=== PATIENT | male | born 1940 | race Caucasian/White ===

== ENCOUNTER 2016-11-07 20:40 | Inpatient (IN) | payer BC, MEDICARE ==
--- NOTE | 2016-11-07 21:13 | ERPHSYRPT ---
- History of Present Illness Source: patient, family (daughter) Exam Limitations: no limitations Patient Subjective Stated Complaint: PT STATES HE BEGAN TO FEEL BAD AFTER WORKING ALL DAY FRIDAY, STATES HE HAD PAIN TO THE RIGHT FLANK THAT MOVES AROUND TO HIS ABDOMEN. PT ALSO REPORTS SHORTNESS OF BREATH AND PAIN UPON INSPIRATION. PT STATES HE HAS A COUGH, WITH A VERY SMALL AMOUNT OF WHITE SPUTUM. PT ALSO REPORTS A DIMINISHED APPETITE. Triage Nursing Assessment: PT IS AOX3, AMBULATORY TO COT WITH SLOW GAIT, PT IS SHORT OF BREATH AT REST WITH A DRY, COUGH. WHEEZING IS HEARD TO BASES OF LUNGS. PT SKIN IS FLUSHED AND WARM TO THE TOUCH. ABD IS SOFT AND NON TENDER WITH PALPATION. BOWEL SOUNDS ARE PRESENT AND NORMOACTIVEX4. NO EDEMA APPRECIATED. Physician History: Patient here with right flank pain some cough with occasional sputum feeling weak and tired today possible fever and chills. History of kidney stone in the past. Patient normally is active and works daily. History of CABG in the past. No nausea vomiting abdominal pain. No urinary complaints. Some mild shortness of breath with exertion. Timing/Duration: today, yesterday, worse Fever Severity: moderate Fever Therapy BONDING AGENT: none Associated Symptoms: abdominal pain (right flank pain), cough, weakness Allergies/Adverse Reactions: No Known Drug Allergies Allergy (Verified 11/07/16 21:10) Home Medications: Aspirin 81 gm Chew [Baby Aspirin 81 mg Chew] 81 mg PO DAILY 08/04/14 [ History] Hydrocodone Bit/Acetaminophen [[place] 7.5-325 Tablet] 1 each PO Q4-6HPRN PRN [History] Lovastatin 20 mg PO DAILY 08/04/14 [History] Furosemide 40 mg [Lasix 40 MG] 40 mg PO DAILY 11/07/16 [History] Lansoprazole [Prevacid] 30 mg PO DAILY 11/07/16 [History] Losartan Potassium 25 mg PO DAILY 11/07/16 [History] Metoprolol Tartrate 25 mg [Lopressor 25MG Tab] 25 mg PO DAILY 11/07/16 [ History] Potassium Chloride 10 Meq Tab* [Klor Con 10 MEQ] 10 meq PO DAILY 11/07/16 [ History] Hx Tetanus, Diphtheria Vaccination/Date Given: No Hx Influenza Vaccination/Date Given: No Hx Pneumococcal Vaccination/Date Given: No Immunizations Up to Date: Yes - Review of Systems Constitutional: Chills, Fatigue, Lethargy, Malaise Eyes: No Symptoms Respiratory: Cough, Other (pleuritic chest pain) Cardiac: No Symptoms Abdominal/Gastrointestinal: Other (Right flank pain) Genitourinary Symptoms: Flank Pain (As noted above) Musculoskeletal: No Symptoms Skin: No Symptoms Neurological: No Symptoms Psychological: No Symptoms Endocrine: No Symptoms Hematologic/Lymphatic: No Symptoms Immunological/Allergic: No Symptoms All Other Systems: Reviewed and Negative - Past Medical History Pertinent Past Medical History: Yes Neurological History: No Pertinent History Cardiac History: Myocardial Infarction (VT) Respiratory History: No Pertinent History Endocrine Medical History: No Pertinent History Musculoskeletal History: Osteoarthritis History: Other (Kidney stone) Other Medical History: CABG 1992; [place] 08/03 - Past Surgical History Past Surgical History: Yes Cardiac: CABG Gastrointestinal: Appendectomy Musculoskeletal: Other Male Surgical History: Other Other Surgical History: BACK SURGERY 2014 - Social History Smoking Status: Never smoker Exposure to second hand smoke: No Drug Use: none Patient Lives Alone: No - Nursing Vital Signs Nursing Vital Signs: Initial Vital Signs Temperature 102.4 F 11/07/16 20:56 Pulse Rate 74 11/07/16 20:56 Respiratory Rate 30 H 11/07/16 20:56 Blood Pressure 108/57 11/07/16 20:56 O2 Sat by Pulse Oximetry 92 L 11/07/16 20:56 Pain Scale Pain Intensity 6 - Physical Exam General Appearance: mild distress, obese Eye Exam: PERRL/EOMI ENT Exam: normal ENT inspection Neck Exam: normal inspection Respiratory Exam: decreased air movement (with tachypnea), prolonged expirations , crackles/rales Cardiovascular/Chest Exam: normal heart sounds, regular rate/rhythm, normal peripheral pulses, other (post CABG sternotomy scar) Gastrointestinal/Abdominal Exam: soft, non tender, normal bowel sounds, tenderness (right flank tenderness) Male Genitalia: No hernia Rectal Exam: deferred Extremity Exam: non-tender, normal range of motion Neurologic Exam: alert, oriented x 3, cooperative, normal mood/affect Skin Exam: normal color, warm, dry, No rash, No petechiae Lymphatic: No adenopathy SpO2 Interpretation: borderline oxygenation, O2 applied SpO2: 92 Oxygen Delivery: Room Air - Radiology Exams Chest X-ray Interpretation: Infiltrates, Pneumonia - CT Exams Abdomen/Pelvis CT Interpretation: Tele-radiologist Report (no evidence of kidney stone however abnormal area in colon that needs further investigation) Ordered Tests: Active Orders 24 hr Category Date Time Status Up With Assistance ROUTINE Activity 11/08/16 02:47 Active Admission/Status Order ROUTINE Care 11/08/16 02:47 Active Upholstery Covers Inspector STAT Care 11/07/16 21:13 Completed Code Status Order ROUTINE Care 11/08/16 02:47 Active IV Care Q6H Care 11/08/16 02:47 Active IV Insertion STAT Care 11/07/16 21:17 Completed Oxygen-ED Only NASAL CANNULA 2 lpm Care 11/07/16 21:19 Inactive Pulse Oximetry (ED) STAT Care 11/07/16 21:13 Completed Saline Lock STAT Care 11/07/16 21:13 Completed Mayito Farhad, Apply ROUTINE Care 11/08/16 02:47 Active Telemetry Q4H Care 11/08/16 02:47 Active Weight,Daily 0600 Care 11/08/16 02:47 Active Cardiac Diet Diet 11/08/16 Breakfast Active ABDOMEN AND PELVIS W/0 CONTRAS [CT] Stat Exams 11/07/16 21:45 Taken CHEST 1 VIEW (PORTABLE) Stat Exams 11/07/16 21:13 Taken ARTERIAL BLOOD GASES AM.LAB Lab 11/08/16 04:00 Ordered ARTERIAL BLOOD GASES Stat Lab 11/07/16 21:21 Completed BLOOD CULTURE Stat Lab 11/07/16 21:50 Received CBC AM.LAB Lab 11/08/16 04:00 Ordered CBC W DIFF Stat Lab 11/07/16 21:40 Completed CMP AM.LAB Lab 11/08/16 04:00 Ordered CMP Stat Lab 11/07/16 21:40 Completed CULTURE,SPUTUM Stat Lab 11/07/16 21:18 Uncollected CULTURE,URINE Stat Lab 11/07/16 22:18 Received Lactic Acid Stat Lab 11/07/16 21:13 Completed Manual Differential NC Stat Lab 11/07/16 21:40 Completed PROTIME WITH INR Stat Lab 11/07/16 21:40 Completed PTT Stat Lab 11/07/16 21:40 Completed UA W/ MICROSCOPIC Stat Lab 11/07/16 22:18 Completed Oxygen NASAL CANNULA 2 lpm RT 11/08/16 02:47 Active Respiratory Therapy Consult ROUTINE RT 11/08/16 02:47 Completed Transfer Order Routine Transfer 11/08/16 00:27 Completed Medication Summary Generic Name Dose Route Start Last Admin Trade Name Freq PRN Reason Stop Dose Admin Acetaminophen 500 mg 11/08/16 02:47 Tylenol Extra Strength 500 Mg PO 12/08/16 02:46 Q6H PRN PRN FEVER Albuterol/Ipratropium 3 ml 11/08/16 03:00 Duoneb 0.5-3 Mg/3 Ml Neb IH 12/08/16 02:59 Q4HRT ANGELICA Fentanyl Citrate 50 mcg 11/08/16 02:47 Sublimaze 100 Mcg/2 Ml IV 11/13/16 02:46 Q2H PRN PRN PAIN Piperacillin Sod/Tazobactam 100 mls @ 100 mls/hr 11/08/16 06:00 Sod 4.5 gm/ Dextrose IV 12/08/16 05:59 Q8HT ANGELICA Sodium Chloride 1,000 mls @ 100 mls/hr 11/08/16 02:47 11/08/16 03:25 Sodium Chloride 0.9% 1000 Ml IV 12/08/16 02:46 100 mls/hr .Q10H ANGELICA Administration Discontinued Medications Generic Name Dose Route Start Last Admin Trade Name Freq PRN Reason Stop Dose Admin Acetaminophen 975 mg 11/07/16 21:19 11/07/16 21:36 Tylenol 325 Mg PO 11/07/16 21:20 975 mg STAT STA Administration Acetaminophen Confirm 11/07/16 21:30 Tylenol 325 Mg Administered 11/07/16 21:31 Dose 975 mg .ROUTE .STK-MED ONE Sodium Chloride 1,000 mls @ 999 mls/hr 11/07/16 21:17 11/07/16 21:37 Sodium Chloride 0.9% 1000 Ml IV 11/07/16 22:17 999 mls/hr .Q1H1M STA Administration Sodium Chloride Confirm 11/07/16 21:30 Sodium Chloride 0.9% 1000 Ml Administered 11/07/16 21:31 Dose 1,000 mls @ ud .ROUTE .STK-MED ONE Piperacillin Sod/Tazobactam 100 mls @ 100 mls/hr 11/07/16 22:06 11/07/16 22: 28 Sod 4.5 gm/ Dextrose IV 11/07/16 23:05 100 mls/hr STAT ONE Administration Dextrose Confirm 11/07/16 22:16 D5w 100ml Mini Bag 100 Ml Administered 11/07/16 22:17 Dose 100 mls @ ud IV .STK-MED ONE Piperacillin Sod/Tazobactam Sod Confirm 11/07/16 22:15 Zosyn Inj Administered 11/07/16 22:16 Dose 4.5 gm IV .STK-MED ONE Lab/Rad Data: Laboratory Result Diagrams 11/07/16 21:40 11/07/16 21:40 Laboratory Results 11/07/16 11/07/16 11/07/16 Range/Units 22:18 21:58 21:40 WBC (4.0-10.5) K/mm3 RBC (4.1-5.6) M/mm3 Hgb (12.5-18.0) gm/dl Hct (42-50) % MCV (78-100) fl MCH (26-32) pg MCHC (32-36) g/dl RDW (11.5-14.0) % Plt Count (150-450) K/mm3 MPV (6-9.5) fl Segmented Neutrophils (36.-66.) % Band Neutrophils (0.0-2.0) % Lymphocytes (Manual) (24-44) % Monocytes (Manual) (0.0-12.0) % Differential Comment Platelet Estimate (NORMAL) INR 1.17 (0.8-3.0) APTT 30.2 (24.1-36.1) SECONDS Puncture Site pCO2 (35-45) mmHg pO2 (75-100) mmHg Base Excess (-2.0-2.0) O2 Saturation (94-100) g/dF ABG pH (7.35-7.45) ABG HCO3 (22-28) ABG O2 Sat (Measured) (95-100) % Bernard Test A-a Gradient a/A Ratio Hemoglobin Carboxyhemoglobin (0.0-6.9) % THgb Methemoglobin (1.4-1.5) % Potassium (3.5-5.1) Temperature C POC O2 Flow Rate % Sodium (136-145) mEq/L Chloride (98-107) mEq/L Carbon Dioxide (21-32) mEq/L Anion Gap (5-15) MEQ/L BUN (9-20) mg/dL Creatinine (0.55-1.30) mg/dl Estimated GFR ML/MIN Glucose (70-110) MG/DL Lactic Acid (0.4-2.0) Calcium (8.5-10.1) mg/dL Total Bilirubin (0.2-1.0) mg/dL AST (15-37) U/L ALT (12-78) U/L Alkaline Phosphatase (46-116) U/L Serum Total Protein (6.4-8.2) gm/dL Albumin (3.4-5.0) g/dL Ur Collection Type CCMS Urine Color YELLOW (YELLOW) Urine Appearance CLEAR (CLEAR) Urine pH 5.0 (5-6) Ur Specific [place] 1.020 (1.005-1.025) Urine Protein NEGATIVE (Negative) Urine Ketones NEGATIVE (NEGATIVE) Urine Blood TRACE NON-HEM (0-5) Gurjit/ul Urine Nitrite NEGATIVE (NEGATIVE) Urine Bilirubin NEGATIVE (NEGATIVE) Urine Urobilinogen NORMAL (0-1) mg/dL Ur Leukocyte Esterase NEGATIVE (NEGATIVE) Urine Microscopic RBC 0-2 (0-2) /HPF Urine Microscopic WBC 0-2 (0-5) /HPF Ur Epithelial Cells RARE (FEW) /HPF Urine Bacteria RARE (NEGATIVE) /HPF Urine Mucus SLIGHT (NEGATIVE) /HPF Urine Glucose NEGATIVE (NEGATIVE) mg/dL Influenza Type A Ag NEGATIVE (NEGATIVE) Influenza Type B Ag NEGATIVE (NEGATIVE) RSV (PCR) NEGATIVE (Negative) Specimen Received 11-07-16 [id number] 11/07/16 11/07/16 11/07/16 Range/Units 21:40 21:40 21:21 WBC 13.6 H (4.0-10.5) K/mm3 RBC 4.44 (4.1-5.6) M/mm3 Hgb 12.7 (12.5-18.0) gm/dl Hct 39.4 L (42-50) % MCV 88.7 (78-100) fl MCH 28.6 (26-32) pg MCHC 32.2 (32-36) g/dl RDW 13.7 (11.5-14.0) % Plt Count 194 (150-450) K/mm3 MPV 10.7 H (6-9.5) fl Segmented Neutrophils 80 H (36.-66.) % Band Neutrophils 3 H (0.0-2.0) % Lymphocytes (Manual) 13 L (24-44) % Monocytes (Manual) 4 (0.0-12.0) % Differential Comment NORMAL Platelet Estimate NORMAL (NORMAL) INR (0.8-3.0) APTT (24.1-36.1) SECONDS Puncture Site RIGHT RADIAL pCO2 31 L (35-45) mmHg pO2 79 (75-100) mmHg Base Excess 0.9 (-2.0-2.0) O2 Saturation 95.1 (94-100) g/dF ABG pH 7.49 H (7.35-7.45) ABG HCO3 23.6 (22-28) ABG O2 Sat (Measured) 98.9 (95-100) % Bernard Test YES A-a Gradient 110 a/A Ratio 0.42 Hemoglobin 12.7 Carboxyhemoglobin 2.7 (0.0-6.9) % THgb Methemoglobin 1.0 L (1.4-1.5) % Potassium 3.7 3.7 (3.5-5.1) Temperature 37.0 C POC O2 Flow Rate 32 % Sodium 140 (136-145) mEq/L Chloride 103 (98-107) mEq/L Carbon Dioxide 25.9 (21-32) mEq/L Anion Gap 15.1 H (5-15) MEQ/L BUN 17 (9-20) mg/dL Creatinine 1.14 (0.55-1.30) mg/dl Estimated GFR > 60 ML/MIN Glucose 120 H (70-110) MG/DL Lactic Acid (0.4-2.0) Calcium 9.2 (8.5-10.1) mg/dL Total Bilirubin 0.50 (0.2-1.0) mg/dL AST 21 (15-37) U/L ALT 15 (12-78) U/L Alkaline Phosphatase 64 (46-116) U/L Serum Total Protein 7.9 (6.4-8.2) gm/dL Albumin 3.5 (3.4-5.0) g/dL Ur Collection Type Urine Color (YELLOW) Urine Appearance (CLEAR) Urine pH (5-6) Ur Specific [place] (1.005-1.025) Urine Protein (Negative) Urine Ketones (NEGATIVE) Urine Blood (0-5) Gurjit/ul Urine Nitrite (NEGATIVE) Urine Bilirubin (NEGATIVE) Urine Urobilinogen (0-1) mg/dL Ur Leukocyte Esterase (NEGATIVE) Urine Microscopic RBC (0-2) /HPF Urine Microscopic WBC (0-5) /HPF Ur Epithelial Cells (FEW) /HPF Urine Bacteria (NEGATIVE) /HPF Urine Mucus (NEGATIVE) /HPF Urine Glucose (NEGATIVE) mg/dL Influenza Type A Ag (NEGATIVE) Influenza Type B Ag (NEGATIVE) RSV (PCR) (Negative) Specimen Received 11/07/16 Range/Units 21:13 WBC (4.0-10.5) K/mm3 RBC (4.1-5.6) M/mm3 Hgb (12.5-18.0) gm/dl Hct (42-50) % MCV (78-100) fl MCH (26-32) pg MCHC (32-36) g/dl RDW (11.5-14.0) % Plt Count (150-450) K/mm3 MPV (6-9.5) fl Segmented Neutrophils (36.-66.) % Band Neutrophils (0.0-2.0) % Lymphocytes (Manual) (24-44) % Monocytes (Manual) (0.0-12.0) % Differential Comment Platelet Estimate (NORMAL) INR (0.8-3.0) APTT (24.1-36.1) SECONDS Puncture Site pCO2 (35-45) mmHg pO2 (75-100) mmHg Base Excess (-2.0-2.0) O2 Saturation (94-100) g/dF ABG pH (7.35-7.45) ABG HCO3 (22-28) ABG O2 Sat (Measured) (95-100) % Bernard Test A-a Gradient a/A Ratio Hemoglobin Carboxyhemoglobin (0.0-6.9) % THgb Methemoglobin (1.4-1.5) % Potassium (3.5-5.1) Temperature C POC O2 Flow Rate % Sodium (136-145) mEq/L Chloride (98-107) mEq/L Carbon Dioxide (21-32) mEq/L Anion Gap (5-15) MEQ/L BUN (9-20) mg/dL Creatinine (0.55-1.30) mg/dl Estimated GFR ML/MIN Glucose (70-110) MG/DL Lactic Acid 0.7 (0.4-2.0) Calcium (8.5-10.1) mg/dL Total Bilirubin (0.2-1.0) mg/dL AST (15-37) U/L ALT (12-78) U/L Alkaline Phosphatase (46-116) U/L Serum Total Protein (6.4-8.2) gm/dL Albumin (3.4-5.0) g/dL Ur Collection Type Urine Color (YELLOW) Urine Appearance (CLEAR) Urine pH (5-6) Ur Specific [place] (1.005-1.025) Urine Protein (Negative) Urine Ketones (NEGATIVE) Urine Blood (0-5) Gurjit/ul Urine Nitrite (NEGATIVE) Urine Bilirubin (NEGATIVE) Urine Urobilinogen (0-1) mg/dL Ur Leukocyte Esterase (NEGATIVE) Urine Microscopic RBC (0-2) /HPF Urine Microscopic WBC (0-5) /HPF Ur Epithelial Cells (FEW) /HPF Urine Bacteria (NEGATIVE) /HPF Urine Mucus (NEGATIVE) /HPF Urine Glucose (NEGATIVE) mg/dL Influenza Type A Ag (NEGATIVE) Influenza Type B Ag (NEGATIVE) RSV (PCR) (Negative) Specimen Received - Progress Progress: improved, re-examined Progress Note: 11/08/16 00:25Patient with obvious large right pneumonitis negative CT scan except for abnormal area and colon that needs further investigation. Case discussed with Dr. Styles patient for full admission with aggressive treatment of pneumonia. Discussed with : Jensen Will see patient in: hospital (full admit) - Departure Time of Disposition: 00:26 Departure Disposition: In-patient Admission Clinical Impression: Abnormal abdominal CT scan Right lower lobe pneumonia Qualifiers: Pneumonia type: due to unspecified organism Qualified Code(s): J18.1 - Lobar pneumonia, unspecified organism Condition: Serious Critical Care Time: No
[2016-11-07] MEDS ORDERED: Sodium Chloride 0.9% 1000 ML 1,000 ML IV STA (21:17)
[2016-11-07] MEDS ORDERED: TYLENOL 325 MG PO STA (21:19)
[2016-11-07] MEDS ORDERED: Sodium Chloride 0.9% 1000 ML 1,000 ML ONE (21:30)
[2016-11-07] MEDS ORDERED: TYLENOL 325 MG ONE (21:30)
[2016-11-07 21:59] LABS: A-aADO2 110; ARTERIAL BLD GAS O2 SATURATION 98.9 % (95-100); ARTERIAL BLOOD GAS BASE EXCESS 0.9 (-2.0-2.0); ARTERIAL BLOOD GAS FIO2 32 %; ARTERIAL BLOOD GAS PO2 79 mmHg (75-100); ARTERIAL BLOOD GAS pH 7.49 (7.35-7.45)
[2016-11-07 22:01] LABS: Mean Cell Volume 88.7 fl (78-100); Mean Corpuscular Hemoglobin 28.6 pg (26-32); Mean Platelet Volume 10.7 fl (6-9.5); Platelet Count 194 K/mm3 (150-450); Red Blood Count 4.44 M/mm3 (4.1-5.6); Red Cell Distribution Width 13.7 % (11.5-14.0); White Blood Count 13.6 K/mm3 (4.0-10.5)
[2016-11-07 22:05] LABS: ALLEN TEST OK? YES
[2016-11-07] MEDS ORDERED: Zosyn INJ 4.5 GM in D5w 100ML Mini Bag 100 ML 100 ML IV ONE (22:06)
[2016-11-07] MEDS ORDERED: Zosyn INJ IV ONE (22:15)
[2016-11-07] MEDS ORDERED: D5w 100ML Mini Bag 100 ML 100 ML IV ONE (22:16)
[2016-11-07 22:17] LABS: INR 1.17 (0.8-3.0); PROTIME 13.2 SECONDS (8.83-12.87)
[2016-11-07 22:20] LABS: PTT 30.2 SECONDS (24.1-36.1)
[2016-11-07 22:25] LABS: ALBUMIN 3.5 g/dL (3.4-5.0); ALKALINE PHOSPHATASE 64 U/L (46-116); ANION GAP 15.1 MEQ/L (5-15); BLOOD UREA NITROGEN 17 mg/dL (9-20); CHLORIDE 103 mEq/L (98-107); Carbon Dioxide 25.9 mEq/L (21-32); Glucose 120 MG/DL (70-110); Potassium 3.7 mEq/L (3.5-5.1); SGOT/AST 21 U/L (15-37); SGPT/ALT 15 U/L (12-78); SODIUM 140 mEq/L (136-145); Total Protein 7.9 gm/dL (6.4-8.2)
[2016-11-07 22:43] LABS: Bacteria RARE /HPF (NEGATIVE); Bilirubin NEGATIVE (NEGATIVE); Blood TRACE NON-HEM Ery/ul (0-5); COMPLETE URINE MICROSCOPIC? YES; Collection Type CCMS; Epithelial Cells RARE /HPF (FEW); Glucose NEGATIVE (NEGATIVE); Leukocyte Esterase NEGATIVE (NEGATIVE); Mucus SLIGHT /HPF (NEGATIVE); WBC 0-2 /HPF (0-5)
[2016-11-07 22:48] LABS: BAND 3 % (0.0-2.0); Platelet Estimate NORMAL (NORMAL); Total Cells Counted 100
[2016-11-08] MEDS ORDERED: TYLENOL EXTRA STRENGTH 500 MG PO PRN (02:47)
[2016-11-08] MEDS ORDERED: DUONEB 0.5-3 MG/3 ml Neb IH SCH (03:00)
[2016-11-08] MEDS: Sodium Chloride 0.9% 1000 ML 1,000 ML IV SCH ×2 (03:25→14:48)
[2016-11-08] MEDS ORDERED: DUONEB 0.5-3 MG/3 ml Neb IH PRN (04:17)
[2016-11-08 06:02] LABS: Mean Cell Volume 89.8 fl (78-100); Mean Corpuscular Hemoglobin 28.1 pg (26-32); Mean Platelet Volume 10.1 fl (6-9.5); Platelet Count 161 K/mm3 (150-450); Red Blood Count 4.02 M/mm3 (4.1-5.6); Red Cell Distribution Width 13.8 % (11.5-14.0); White Blood Count 11.1 K/mm3 (4.0-10.5)
[2016-11-08 06:22] LABS: ALBUMIN 2.8 g/dL (3.4-5.0); ALKALINE PHOSPHATASE 53 U/L (46-116); ANION GAP 12.6 MEQ/L (5-15); BLOOD UREA NITROGEN 15 mg/dL (9-20); CHLORIDE 106 mEq/L (98-107); Carbon Dioxide 24.5 mEq/L (21-32); Glucose 150 MG/DL (70-110); Potassium 3.3 mEq/L (3.5-5.1); SGOT/AST 18 U/L (15-37); SGPT/ALT 20 U/L (12-78); SODIUM 140 mEq/L (136-145); Total Protein 6.9 gm/dL (6.4-8.2)
[2016-11-08] MEDS: Zosyn INJ 4.5 GM in D5w 100ML Mini Bag 100 ML 100 ML IV SCH ×3 (07:08→22:05)
--- NOTE | 2016-11-08 09:24 | XRAY ---
Indication: Possible sepsis. Comparison: August 04, 2014. Portable chest significantly underinflated today accentuating the cardiopulmonary structures with new bibasilar infiltrates/atelectasis and possible effusions. Stable CABG surgery and left upper lobe calcified granuloma. Bony thorax intact.
--- NOTE | 2016-11-08 09:27 | XRAY ---
Indication: Left flank pain. Multiple contiguous axial images obtained through the abdomen and pelvis without contrast as ordered. Comparison: August 04, 2014. Lung bases again demonstrates moderate bilateral dependent atelectasis slightly worsened in the interim. Tiny right effusion. Heart is not enlarged. Noncontrasted stomach and bowel loops appear nonobstructed. Again scattered descending and sigmoid diverticulosis without diverticulitis. Previous reported appendectomy. No free fluid/air. Again a few calcified hepatic/splenic granulomas. There is now nonobstructing punctate lower renal calculus in each kidney. Remaining liver, gallbladder, pancreas, spleen, adrenal glands, kidneys, ureters, and bladder appear unremarkable for noncontrast exam. Again mild aortoiliac calcifications without AAA. Osseous structures intact again with moderate degenerative changes throughout the spine. There has been interval L3 laminectomy with now 5-6 mm anterolisthesis. Stable small bilateral fatty inguinal hernias. Impression: 1. New nonobstructing bilateral renal micro-calculus. 2. Stable scattered colonic diverticulosis and small bilateral fatty inguinal hernias. 3. No acute intra-abdominal/pelvic abnormalities on this noncontrast exam. 4. Interval L3 laminectomy with now mild grade 1 spondylolisthesis. Comment: Preliminary interpretation was made by [facility]. Bilateral renal micro-calculi, fatty inguinal hernias, and lumbar surgical changes including spondylolisthesis not reported and not felt to be critical findings. CT DI 23.68
[2016-11-08] MEDS: NORCO 7.5/325 MG TAB PO PRN ×2 (09:37→22:04)
[2016-11-08] MEDS: Cozaar 50 MG PO SCH (09:38)
[2016-11-08] MEDS: ECOTRIN 81 MG PO SCH (09:38)
[2016-11-08] MEDS: Protonix 40MG Tablet PO SCH (09:38)
[2016-11-08] MEDS: ENOXAPARIN SODIUM SQ SCH (09:38)
[2016-11-08] MEDS: Lasix 40 MG PO SCH (09:39)
[2016-11-08] MEDS: Lopressor 25MG Tab PO SCH (09:39)
[2016-11-08] MEDS: Klor Con 10 MEQ PO SCH (09:39)
[2016-11-08] MEDS: Zocor 10MG PO SCH (09:39)
[2016-11-08] MEDS ORDERED: NON-FORMULARY ITEM (Losartan Potassium [Losartan Potassium] 25 MG) PO SCH (10:00)
[2016-11-08] MEDS ORDERED: NON-FORMULARY ITEM (Lansoprazole [Prevacid] 30 MG) PO SCH (10:00)
[2016-11-08] MEDS ORDERED: BABY ASPIRIN 81 MG CHEW PO SCH (10:00)
[2016-11-08] MEDS ORDERED: NON-FORMULARY ITEM (Lovastatin [Lovastatin] 20 MG) PO SCH (10:00)
[2016-11-08] MEDS: SUBLIMAZE 100 MCG/2 ML IV PRN ×3 (11:06→17:03)
[2016-11-09] MEDS: Sodium Chloride 0.9% 1000 ML 1,000 ML IV SCH (01:35)
[2016-11-09] MEDS: Zosyn INJ 4.5 GM in D5w 100ML Mini Bag 100 ML 100 ML IV SCH ×3 (05:47→21:46)
[2016-11-09 06:09] LABS: BASOPHIL % 0.2 % (0.0-0.4); Eosinophil % 2.6 % (0.00-5.0); Granulocytes % 73.3 % (36.0-66.0); Lymphocytes % 12.9 % (24.0-44.0); Mean Cell Volume 89.8 fl (78-100); Mean Corpuscular Hemoglobin 27.9 pg (26-32); Mean Platelet Volume 10.2 fl (6-9.5); Platelet Count 143 K/mm3 (150-450); Red Blood Count 4.33 M/mm3 (4.1-5.6); Red Cell Distribution Width 13.8 % (11.5-14.0); White Blood Count 12.1 K/mm3 (4.0-10.5)
[2016-11-09 06:45] LABS: ALBUMIN 2.7 g/dL (3.4-5.0); ALKALINE PHOSPHATASE 51 U/L (46-116); ANION GAP 12.6 MEQ/L (5-15); BLOOD UREA NITROGEN 12 mg/dL (9-20); CHLORIDE 104 mEq/L (98-107); Carbon Dioxide 24.6 mEq/L (21-32); Glucose 105 MG/DL (70-110); Potassium 3.6 mEq/L (3.5-5.1); SGOT/AST 20 U/L (15-37); SGPT/ALT 18 U/L (12-78); SODIUM 138 mEq/L (136-145); Total Protein 6.9 gm/dL (6.4-8.2)
[2016-11-09] MEDS: ENOXAPARIN SODIUM SQ SCH (09:20)
[2016-11-09] MEDS: Zithromax 500 MG/ 250 ML NaCl Premix 500 MG/250 ML IVPB IV SCH ×2 (09:20→10:42)
[2016-11-09] MEDS: Cozaar 50 MG PO SCH (09:20)
[2016-11-09] MEDS: Protonix 40MG Tablet PO SCH (09:21)
[2016-11-09] MEDS: Tussionex Pennkinetic Susp PO SCH ×2 (09:21→21:46)
[2016-11-09] MEDS: Zocor 10MG PO SCH (09:21)
[2016-11-09] MEDS: ECOTRIN 81 MG PO SCH (09:21)
[2016-11-09] MEDS: Lasix 40 MG PO SCH (09:21)
[2016-11-09] MEDS: Klor Con 10 MEQ PO SCH (09:21)
[2016-11-09] MEDS: Lopressor 25MG Tab PO SCH (09:21)
--- NOTE | 2016-11-09 15:48 | HP ---
CHIEF COMPLAINT: Cough, shortness of breath, and back pain. 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 He became more short of breath. He lost his appetite with having increasing shortness of breath and significant pain with cough and his back. He presented himself to the emergency room and was diagnosed with pneumonia and admitted to the hospital. PAST MEDICAL HISTORY: Significant for coronary artery disease, osteoarthritis, previous myocardial infarction. HOME MEDICATIONS: Aspirin 81 mg a day, [place] 7.5/325, lovastatin 20 mg a day, Lasix 40 mg a day, Levsin 30 mg daily, losartan 25 mg daily, metoprolol 25 mg daily, and potassium 10 mEq daily. ALLERGIES: He has no known drug allergies. PHYSICAL EXAMINATION: GENERAL: Reveals a large white male patient who is no obvious distress at this point. VITAL SIGNS: Vital signs on admission showed a temperature of 102.4, pulse of 74, respiratory rate of 30, blood pressure 108/57, O2 saturations 92% on room air. HEENT: Normocephalic and atraumatic, pupils are equal, round, reactive to light, extraocular muscles intact. Oropharynx is dry. NECK: Supple without lymphadenopathy, thyromegaly or JVD. CHEST: Clear to auscultation, fairly good air movement and no significant crackles or rales were heard. HEART: Regular rate and rhythm without murmurs, rubs or gallops. ABDOMEN: Soft, nontender, nondistended without hepatosplenomegaly or masses. EXTREMITIES: Without cyanosis, clubbing or edema. NEUROLOGIC: The patient is alert and oriented x3. No focal deficits are noted. LABS: Show a CT scan showing nonobstructive bilateral renal calculi, stable quiet diverticulosis. No acute intra-abdominal pelvic pathology was noted, interval L3 laminectomy is apparent. The patient's white count was 13,600 with 3 bands and 80 polys. His hemoglobin was 12.7, platelet count 194,000. Influenza A, B, and RSV were all negative as was the strep screen. His urinalysis showed a gravity of 1.020, was essentially normal. His metabolic panel showed a nonfasting glucose of 120, BUN 17, creatinine 1.14. Electrolytes were normal. Liver enzymes were normal. Lactic acid was 0.7. ABG showed a pH of 7.49, pCO2 of 31, and po2 of 79 on room air. INR was 1.17. The chest x-ray did show some possible infiltrates and bibasilar areas. ASSESSMENT: The patient with pneumonia. He has been admitted for IV antibiotics. He has been placed on Zosyn intravenously, oxygen port, and we will continue his home medications at the present time, otherwise.
[2016-11-09] MEDS: NORCO 7.5/325 MG TAB PO PRN (21:46)
[2016-11-10] MEDS: Zosyn INJ 4.5 GM in D5w 100ML Mini Bag 100 ML 100 ML IV SCH (05:30)
[2016-11-10 05:40] LABS: BASOPHIL % 0.3 % (0.0-0.4); Eosinophil % 3.4 % (0.00-5.0); Granulocytes % 70.3 % (36.0-66.0); Lymphocytes % 15.7 % (24.0-44.0); Mean Cell Volume 88.4 fl (78-100); Mean Corpuscular Hemoglobin 28.2 pg (26-32); Mean Platelet Volume 10.1 fl (6-9.5); Monocytes % 10.3 % (0.0-12.0); Platelet Count 193 K/mm3 (150-450); Red Blood Count 4.04 M/mm3 (4.1-5.6); Red Cell Distribution Width 13.5 % (11.5-14.0)
[2016-11-10 06:05] LABS: ALBUMIN 2.8 g/dL (3.4-5.0); ALKALINE PHOSPHATASE 47 U/L (46-116); ANION GAP 12.4 MEQ/L (5-15); BLOOD UREA NITROGEN 9 mg/dL (9-20); CHLORIDE 101 mEq/L (98-107); Carbon Dioxide 26.9 mEq/L (21-32); Glucose 106 MG/DL (70-110); Potassium 3.5 mEq/L (3.5-5.1); SGOT/AST 22 U/L (15-37); SGPT/ALT 29 U/L (12-78); SODIUM 137 mEq/L (136-145)
[2016-11-10 07:22] VITALS: BP 150/65; PULSE 88; O2SAT 92
[2016-11-10] MEDS: Zithromax 500 MG/ 250 ML NaCl Premix 500 MG/250 ML IVPB IV SCH (09:31)
--- NOTE | 2016-11-10 09:31 | PCM.DCORD ---
- Discharge Discharge Date: 11/10/16 Disposition: Home, Self-Care Condition: Fair Prescriptions: New Amoxicillin/Potassium Clav [Augmentin 875-125 Tablet] 875 mg PO BID #14 tablet Continue Lovastatin 20 mg PO DAILY Aspirin 81 gm Chew [Baby Aspirin 81 mg Chew] 81 mg PO DAILY Hydrocodone Bit/Acetaminophen [[place] 7.5-325 Tablet] 1 each PO Q4-6HPRN PRN PRN Reason: Pain Lansoprazole [Prevacid] 30 mg PO DAILY Potassium Chloride 10 Meq Tab* [Klor Con 10 MEQ] 10 meq PO DAILY Metoprolol Tartrate 25 mg [Lopressor 25MG Tab] 25 mg PO DAILY Furosemide 40 mg [Lasix 40 MG] 40 mg PO DAILY Losartan Potassium 25 mg PO DAILY Follow up with: ANN SCHROEDER [Primary Care Provider] -
[2016-11-10] MEDS: Cozaar 50 MG PO SCH (10:43)
[2016-11-10] MEDS: Protonix 40MG Tablet PO SCH (10:43)
[2016-11-10] MEDS: ECOTRIN 81 MG PO SCH (10:43)
[2016-11-10] MEDS: Lopressor 25MG Tab PO SCH (10:43)
[2016-11-10] MEDS: ENOXAPARIN SODIUM SQ SCH (10:44)
[2016-11-10] MEDS: Klor Con 10 MEQ PO SCH (10:44)
[2016-11-10] MEDS: Zocor 10MG PO SCH (10:44)
[2016-11-10] MEDS: Tussionex Pennkinetic Susp PO SCH (10:44)
[2016-11-10] MEDS: Lasix 40 MG PO SCH (10:44)
--- NOTE | 2016-11-11 13:48 | DS ---
DISCHARGE DIAGNOSIS: PNEUMONIA. HISTORY: The patient is a 76 year-old white male patient presenting to the hospital with complaints of chest pain, shortness of breath and chills. He was found to have a fever upon his arrival of 102F. He was swabbed for influenza, respiratory syncytial virus and strep that were all negative. The chest x-ray showed infiltrate. He did have an elevation of his white blood cell count as well when he presented. He was subsequently admitted to the hospital for pneumonia treatment. HOSPITAL COURSE: The patient was placed on Zosyn and subsequently added Zithromax after which the patient did show improvement with much less chest pain with deep breaths and movement that he initially had upon his admission. He defervesced. His temperature at that time of discharge was 99.1F, pulse 62, respiratory rate 18, blood pressure 138/70 with O2 saturation 93% on room air. His white blood cell count had dropped to 10,000, hemoglobin 11.4, PLT count 193,000. He had 70.3% granulocytes by the time of discharge. He did have urine culture which was read as probable skin contaminant. The patient was discharged home on Augmentin 875 mg b.i.d. for an additional week and to follow up in the office at the end of the next coming week. He is to follow up if he has any problems of increasing shortness of breath or return of the pain or fever.
== END 2016-11-10 12:15 | disposition home or self-care (01) | DRG 194 ==
LOC: ED 20:40 → MED SURG 11-08 01:24
PROVIDERS: ADMIT Family Medicine; ATTEND Family Medicine
DX: J18.9 Pneumonia, unspecified organism (principal); I25.810 Atherosclerosis of coronary artery bypass graft(s) without angina pectoris; M19.90 Unspecified osteoarthritis, unspecified site; Z79.899 Other long term (current) drug therapy
CPT/HCPCS: 36000; 36415; 36600; 71010; 74176; 80053; 81000; 82375; 82803; 83605; 85025; 85027; 85610; 85730; 87040; 87070; 87086; 87631; 93041; 94760; 96360; 96365; 99285; J0456; J1650; J2543; J3010; A9270-GY

== ENCOUNTER 2017-11-16 12:40 | Emergency (ER) | payer MEDICARE ==
[2017-11-16] MEDS ORDERED: DUONEB 0.5-3 MG/3 ml Neb IH ONE ×2 (13:21→13:28)
[2017-11-16 13:43] LABS: BASOPHIL % 0.1 % (0.0-0.4); Basophil (Absolute #) 0.01 (0-0.4); Eosinophil % 0.6 % (0.00-5.0); Eosinophil (Absolute #) 0.07 (0-0.5); Granulocyte Absolute (ANC) 9.87 (1.4-6.9); Granulocytes % 77.9 % (36.0-66.0); Hematocrit 41.5 % (42-50); Hemoglobin 13.6 gm/dl (12.5-18.0); INR 1.13 (0.8-3.0); Lymphocytes % 11.8 % (24.0-44.0); Mean Cell Volume 88.1 fl (78-100); Mean Corpuscular Hemoglobin 28.9 pg (26-32); Mean Corpuscular Hgb Concent. 32.8 g/dl (32-36); Mean Platelet Volume 10.4 fl (6-9.5); Monocyte (Absolute #) 1.21 (0.0-1.3); Monocytes % 9.6 % (0.0-12.0); Platelet Count 140 K/mm3 (150-450); Red Blood Count 4.71 M/mm3 (4.1-5.6); Red Cell Distribution Width 15.3 % (11.5-14.0); White Blood Count 12.7 K/mm3 (4.0-10.5)
[2017-11-16 13:47] LABS: ALBUMIN 4.1 g/dL (3.5-5.0); ALKALINE PHOSPHATASE 71 U/L (38-126); ANION GAP 14.7 MEQ/L (5-15); BLOOD UREA NITROGEN 20 mg/dL (9-20); CHLORIDE 104 mmol/L (98-107); Calcium 9.1 mg/dL (8.4-10.2); Carbon Dioxide 22 mmol/L (22-30); Creatinine 1 0.81 mg/dL (0.66-1.25); Glucose 129 mg/dL (74-106); Potassium 3.8 mmol/L (3.5-5.1); SGOT/AST 22 U/L (17-59); SGPT/ALT 20 U/L (0-50); SODIUM 137 mmol/L (137-145); Total Protein 7.6 g/dL (6.3-8.2)
[2017-11-16 13:56] LABS: NT PRO BNP 1350 pg/mL (0-1800)
[2017-11-16] MEDS ORDERED: Sodium Chloride 0.9% 1000 ML 1,000 ML ONE (14:27)
[2017-11-16] MEDS ORDERED: Sodium Chloride 0.9% 1000 ML 1,000 ML IV SCH (14:30)
[2017-11-16] MEDS ORDERED: ENOXAPARIN SODIUM SQ ONE (16:14)
[2017-11-16] MEDS ORDERED: LIPITOR 40MG PO STA (16:15)
[2017-11-16] MEDS ORDERED: Heparin 5000 UNITS/0.5 ML (HIGH RISK MED) IV ONE (16:18)
[2017-11-16] MEDS ORDERED: Heparin 5000 UNITS/0.5 ML (HIGH RISK MED) ONE (16:26)
[2017-11-16] MEDS ORDERED: LIPITOR 40MG ONE (16:26)
[2017-11-16] MEDS ORDERED: Heparin 25,000 units/D5W 250ML PREMIX 25,000 UNITS/250 ML BAG IV ONE (16:27)
[2017-11-16] MEDS ORDERED: Heparin 25,000 units/D5W 250ML PREMIX 25,000 UNITS/250 ML BAG IV SCH (16:30)
[2017-11-16] MEDS ORDERED: Lasix 40 MG/4 ML IV ONE (16:35)
[2017-11-16] MEDS ORDERED: Lasix 40 MG/4 ML ONE (16:37)
--- NOTE | 2017-11-16 16:55 | ERPHSYRPT ---
- History of Present Illness Time Seen by Provider: 11/16/17 13:32 Source: patient Exam Limitations: clinical condition Patient Subjective Stated Complaint: patient shortness of breath and pain in back, legs at tiems felt weak. called dr ordered labs and ddimer came back 6, [phone]. dr advised go to ER for followup Triage Nursing Assessment: pt alert and oriented x3, lung sounds clear right side left side diminshed/absent breath sounds, patient ambulates but becomes short of breath on exertion, states hes been experiencing weakness in his legs. pulses equal bialteral radius, cap refill immediate, pedal pulses present , pitting edema in legs, jvd present. Physician History: PATIENT WITH A HISTORY OF CORONARY ARTERY DISEASE, DVT AND PULMONARY EMBOLISM, OFF ANTICOAGULANTS, COMPLAINS OF INCREASING DYSPNEA X 1 WEEK, PROGRESSIVELY WORSE, ASSOCIATED WITH LEFT POSTERIOR CHEST PAINS UPON INSPIRATION. DENIES DIAPHORESIS, PALPITATIONS OR COUGH. REFERRED TO EMERGENCY ROOM BY PRIMARY CARE PROVIDER FOR EVALUATION OF DDIMER [id number]. Timing/Duration: week(s) Activities at Onset: activity Severity of Dyspnea-Max: moderate Severity of Dyspnea-Current: moderate Possible Cause: occasional episodes (HISTORY OF PULMONARY EMBOLISM) Modifying Factors: Improves With: activity, exertion (MARKED EXERTIONAL DYSPNEA) Associated Symptoms: chest pain/discomfort International travel in last 2 weeks: No Allergies/Adverse Reactions: No Known Drug Allergies Allergy (Verified 11/07/16 21:10) Home Medications: Aspirin 81 gm Chew [Baby Aspirin 81 mg Chew] 81 mg PO DAILY 08/04/14 [ History] Hydrocodone Bit/Acetaminophen [[place] 7.5-325 Tablet] 1 each PO Q4-6HPRN PRN [History] Furosemide 40 mg [Lasix 40 MG] 40 mg PO DAILY 11/07/16 [History] Lansoprazole [Prevacid] 30 mg PO DAILY 11/07/16 [History] Losartan Potassium 25 mg PO DAILY 11/07/16 [History] Metoprolol Tartrate 25 mg [Lopressor 25MG Tab] 25 mg PO DAILY 11/07/16 [ History] Potassium Chloride 10 Meq Tab* [Klor Con 10 MEQ] 10 meq PO DAILY 11/07/16 [ History] Hx Tetanus, Diphtheria Vaccination/Date Given: Yes Hx Influenza Vaccination/Date Given: Yes Hx Pneumococcal Vaccination/Date Given: No Immunizations Up to Date: Yes - Review of Systems Constitutional: No Fever, No Chills Eyes: No Symptoms Ears, Nose, & Throat: No Symptoms Respiratory: Dyspnea, Dyspnea on Exertion (CONNOR), No Cough Cardiac: No Chest Pain, No Edema, No Syncope Abdominal/Gastrointestinal: No Abdominal Pain, No Nausea, No Vomiting, No Diarrhea Genitourinary Symptoms: No Symptoms, No Dysuria Musculoskeletal: No Symptoms, No Back Pain, No Neck Pain Skin: No Rash Neurological: No Dizziness, No Focal Weakness, No Sensory Changes Psychological: No Symptoms Endocrine: No Symptoms All Other Systems: Reviewed and Negative - Past Medical History Pertinent Past Medical History: Yes Neurological History: No Pertinent History ENT History: No Pertinent History Cardiac History: Myocardial Infarction ([place]) Respiratory History: No Pertinent History Endocrine Medical History: No Pertinent History Musculoskeletal History: Osteoarthritis GI Medical History: No Pertinent History History: Other Psycho-Social History: No Pertinent History Male Reproductive Disorders: No Pertinent History Other Medical History: CABG 1992; [place] 08/03 - Past Surgical History Past Surgical History: Yes Neuro Surgical History: No Pertinent History Cardiac: CABG Gastrointestinal: Appendectomy Genitourinary: No Pertinent History Musculoskeletal: Other Male Surgical History: Other Other Surgical History: BACK SURGERY 2014 - Social History Smoking Status: Never smoker Exposure to second hand smoke: No Drug Use: none Patient Lives Alone: No - Nursing Vital Signs Nursing Vital Signs: Initial Vital Signs Temperature 98 F 11/16/17 12:42 Pulse Rate 65 11/16/17 12:42 Respiratory Rate 16 11/16/17 12:42 Blood Pressure 151/91 11/16/17 12:42 O2 Sat by Pulse Oximetry 91 L 11/16/17 12:42 Pain Scale Pain Intensity 3 - Physical Exam General Appearance: no apparent distress, alert Eye Exam: PERRL/EOMI Neck Exam: normal inspection, supple Respiratory Exam: diminished breath sounds (LEFT BASE NO WHEEZES OR RHONCHI) Cardiovascular/Chest Exam: normal heart sounds, regular rate/rhythm, JVD (MILD AT 45 DEGREES ANGLE OF MANDIBLE) Abdominal/Gastrointestinal Exam: soft, No tenderness, No distention, No mass Extremity Exam: non-tender, normal range of motion, normal inspection, no calf tenderness, pedal edema (1+) Peripheral Pulses Exam: carotid (R): 2+, carotid (L): 2+, femoral (R): 2+, femoral (L): 2+, dorsalis-pedis (R): 2+, dorsalis-pedis (L): 2+ Neurologic Exam: alert, oriented x 3, cooperative, foreign legal consultant II-XII nml as tested, sensation nml, No motor deficits Skin Exam: normal color, warm, No dry SpO2 Interpretation: normal SpO2: 96 Oxygen Delivery: Room Air - Course EKG Interpreted by Me: RATE, NORMAL AXIS, 1st degree AV Block - Radiology Exams Chest X-ray Interpretation: Reviewed by me, Negative (PREVIOUS STERNOTOMY) - CT Exams Chest CT Interpretation: Tele-radiologist Report (PROMINENT BILATERAL PULMONARY EMBOLI TO THE LOWER LOBES, UPPER LOBES AND LINGULA) Ordered Tests: Active Orders 24 hr Category Date Time Status IV Insertion STAT Care 11/16/17 13:21 Active Oxygen-ED Only NASAL CANNULA 2 lpm Care 11/16/17 13:21 Active CHEST 1 VIEW (PORTABLE) Stat Exams 11/16/17 14:17 Taken CHEST WITH CONTRAST [CT] Stat Exams 11/16/17 15:16 Taken BLOOD CULTURE Stat Lab 11/16/17 13:35 Received CBC W DIFF Stat Lab 11/16/17 13:30 Completed CMP Stat Lab 11/16/17 13:30 Completed MAGNESIUM Stat Lab 11/16/17 13:30 Completed NT PRO BNP Stat Lab 11/16/17 13:30 Completed PROTIME WITH INR Stat Lab 11/16/17 13:30 Completed TROPONIN Q3H Lab 11/16/17 13:30 Completed TROPONIN Q3H Lab 11/16/17 16:10 Completed TROPONIN Q3H Lab 11/16/17 19:30 Ordered TROPONIN Q3H Lab 11/16/17 22:30 Ordered TROPONIN Q3H Lab 11/17/17 01:30 Ordered Respiratory Nebulizer STAT RT 11/16/17 13:23 Active Medication Summary Generic Name Dose Route Start Last Admin Trade Name Freq PRN Reason Stop Dose Admin Sodium Chloride 1,000 mls @ 100 mls/hr 11/16/17 14:30 11/16/17 14:29 Sodium Chloride 0.9% 1000 Ml IV 12/16/17 14:29 100 mls/hr .Q10H ANGELICA Administration Heparin Sodium/Dextrose 25,000 units in 250 mls @ 10 mls/hr 11/16/17 16:30 16:36 Heparin 25,000 Units/D5w 250ml Premix IV 12/16/17 16:29 10 ml/hr .Q24H ANGELICA 10 mls/hr Administration Discontinued Medications Generic Name Dose Route Start Last Admin Trade Name Delfin PRN Reason Stop Dose Admin Albuterol/Ipratropium 3 ml 11/16/17 13:21 11/16/17 13:30 Duoneb 0.5-3 Mg/3 Ml Neb IH 11/16/17 13:22 3 ml STAT ONE Administration Albuterol/Ipratropium Confirm 11/16/17 13:28 Duoneb 0.5-3 Mg/3 Ml Neb Administered 11/16/17 13:29 Dose 3 ml IH .STK-MED ONE Atorvastatin Calcium 80 mg 11/16/17 16:15 11/16/17 16:33 Lipitor 40mg PO 11/16/17 16:16 80 mg STAT STA Administration Atorvastatin Calcium Confirm 11/16/17 16:26 Lipitor 40mg Administered 11/16/17 16:27 Dose 80 mg .ROUTE .STK-MED ONE Enoxaparin Sodium 110 mg 11/16/17 16:14 11/16/17 16:42 Enoxaparin Sodium 1 mg/kg (110 mg) 11/16/17 16:15 Not Given SQ STAT ONE Furosemide 40 mg 11/16/17 16:35 11/16/17 16:40 Lasix 40 Mg/4 Ml IV 11/16/17 16:36 40 mg STAT ONE Administration Furosemide Confirm 11/16/17 16:37 Lasix 40 Mg/4 Ml Administered 11/16/17 16:38 Dose 40 mg .ROUTE .STK-MED ONE Heparin Sodium (Beef Lung) 5,000 unit 11/16/17 16:18 11/16/17 16:34 Heparin 5000 Units/0.5 Ml (High Risk Med) IV 11/16/17 16:19 5,000 unit STAT ONE Administration Heparin Sodium (Beef Lung) Confirm 11/16/17 16:26 Heparin 5000 Units/0.5 Ml (High Risk Med) Administered 11/16/17 16:27 Dose 5,000 unit .ROUTE .STK-MED ONE Lab/Rad Data: Laboratory Result Diagrams 11/16/17 13:30 11/16/17 13:30 Laboratory Results 11/16/17 11/16/17 11/16/17 Range/Units 16:10 13:30 13:30 WBC (4.0-10.5) K/mm3 RBC (4.1-5.6) M/mm3 Hgb (12.5-18.0) gm/dl Hct (42-50) % MCV (78-100) fl MCH (26-32) pg MCHC (32-36) g/dl RDW (11.5-14.0) % Plt Count (150-450) K/mm3 MPV (6-9.5) fl Gran % (36.0-66.0) % Eos # (Auto) (0-0.5) Absolute Lymphs (auto) (1.0-4.6) Absolute Monos (auto) (0.0-1.3) Lymphocytes % (24.0-44.0) % Monocytes % (0.0-12.0) % Eosinophils % (0.00-5.0) % Basophils % (0.0-0.4) % Absolute Granulocytes (1.4-6.9) Basophils # (0-0.4) PT 13.2 H (8.83-12.87) SECONDS INR 1.13 (0.8-3.0) Sodium (137-145) mmol/L Potassium (3.5-5.1) mmol/L Chloride (98-107) mmol/L Carbon Dioxide (22-30) mmol/L Anion Gap (5-15) MEQ/L BUN (9-20) mg/dL Creatinine (0.66-1.25) mg/dL Estimated GFR ML/MIN Glucose (74-106) mg/dL Calcium (8.4-10.2) mg/dL Magnesium (1.6-2.3) mg/dL Total Bilirubin (0.2-1.3) mg/dL AST (17-59) U/L ALT (0-50) U/L Alkaline Phosphatase (38-126) U/L Troponin I 0.058 H* 0.059 H* (0.000-0.034) ng/mL NT-Pro-B Natriuret Pep (0-1800) pg/mL Serum Total Protein (6.3-8.2) g/dL Albumin (3.5-5.0) g/dL 11/16/17 11/16/17 Range/Units 13:30 13:30 WBC 12.7 H (4.0-10.5) K/mm3 RBC 4.71 (4.1-5.6) M/mm3 Hgb 13.6 (12.5-18.0) gm/dl Hct 41.5 L (42-50) % MCV 88.1 (78-100) fl MCH 28.9 (26-32) pg MCHC 32.8 (32-36) g/dl RDW 15.3 H (11.5-14.0) % Plt Count 140 L (150-450) K/mm3 MPV 10.4 H (6-9.5) fl Gran % 77.9 H (36.0-66.0) % Eos # (Auto) 0.07 (0-0.5) Absolute Lymphs (auto) 1.50 (1.0-4.6) Absolute Monos (auto) 1.21 (0.0-1.3) Lymphocytes % 11.8 L (24.0-44.0) % Monocytes % 9.6 (0.0-12.0) % Eosinophils % 0.6 (0.00-5.0) % Basophils % 0.1 (0.0-0.4) % Absolute Granulocytes 9.87 H (1.4-6.9) Basophils # 0.01 (0-0.4) PT (8.83-12.87) SECONDS INR (0.8-3.0) Sodium 137 (137-145) mmol/L Potassium 3.8 (3.5-5.1) mmol/L Chloride 104 (98-107) mmol/L Carbon Dioxide 22 (22-30) mmol/L Anion Gap 14.7 (5-15) MEQ/L BUN 20 (9-20) mg/dL Creatinine 0.81 (0.66-1.25) mg/dL Estimated GFR > 60.0 ML/MIN Glucose 129 H (74-106) mg/dL Calcium 9.1 (8.4-10.2) mg/dL Magnesium 1.8 (1.6-2.3) mg/dL Total Bilirubin 0.60 (0.2-1.3) mg/dL AST 22 (17-59) U/L ALT 20 (0-50) U/L Alkaline Phosphatase 71 (38-126) U/L Troponin I (0.000-0.034) ng/mL NT-Pro-B Natriuret Pep 1350 (0-1800) pg/mL Serum Total Protein 7.6 (6.3-8.2) g/dL Albumin 4.1 (3.5-5.0) g/dL - Progress Progress: re-examined, unchanged Air Movement: fair Progress Note: 11/16/17 16:56 ADMINISTERED DUO NEB AEROSOL, HEPARIN BOLUS 5000UNITS IV, HEPARIN INFUSION 1000UNITS/HR Discussed with Dr.: Other (DISCUSSED WITH [facility] EMERGENCY ROOM PHYSICIAN DR SANCHEZ ACCEPTS TRANSFER VIA [facility]) - Departure Time of Disposition: 17:10 Departure Disposition: Transfer Clinical Impression: ACUTE DYSPNEA, ACUTE PULMONARY EMBOLI, ELEVATED TROPONIN Condition: Stable Critical Care Time: No Referrals: ANN SCHROEDER [Primary Care Provider] -
[2017-11-16 17:16] VITALS: BP 152/97; PULSE 59; O2SAT 94
--- NOTE | 2017-11-16 20:51 | XRAY ---
Indication: Short of breath. Elevated d-dimer. History of PE. Multiple contiguous axial images obtained through the chest using 80 cc of Isovue 370 contrast and PE protocol. Comparison: December 03, 2016. There is satisfactory opacification of the pulmonary arteries. However respiration artifact degrades the study. There are extensive pulmonary emboli in the distal left and right main pulmonary arteries extending into all lobar branches. Heart is not enlarged. Aorta is normal in course and caliber. No pathologic mediastinal/hilar lymphadenopathy. Examination of the lung parenchyma again demonstrates bilateral dependent atelectasis greatest near the lung bases. Stable left upper lobe calcific granuloma. No suspicious pulmonary mass, infiltrate, or effusion. Bony thorax intact again with mild degenerative changes throughout the spine and sternotomy wires. Limited upper abdomen again demonstrates fatty liver and a few calcified splenic granulomas. Impression: 1. Extensive bilateral pulmonary emboli extending into all lobar branches. No distal pulmonary infarct. 2. Stable fatty liver and evidence for old granulomatous disease. Comment: Preliminary interpretation was made by [facility]. No discrepancy. CTDI 23.68
--- NOTE | 2017-11-16 20:53 | XRAY ---
Indication: Chest pain and dyspnea. Comparison: November 07, 2016. Portable chest remains markedly underinflated crowding the lung bases. Upper lungs clear again with incidental left upper lobe calcified granuloma. Heart is not enlarged again with CABG surgery. Bony thorax intact again with mild degenerative changes. Impression: Nonacute underinflated chest.
== END 2017-11-16 17:25 | disposition short-term general hospital (02) ==
LOC: ED 12:40
DX: R06.00 Dyspnea, unspecified (principal); I26.99 Other pulmonary embolism without acute cor pulmonale; R74.8 Abnormal levels of other serum enzymes; I25.810 Atherosclerosis of coronary artery bypass graft(s) without angina pectoris; Z79.899 Other long term (current) drug therapy
CPT/HCPCS: 36000; 36415; 71045; 71260; 80053; 83735; 83880; 84484; 85025; 85379; 85610; 87040; 94640; 96360; 96374; 96375; 99285; J1644; J1650; J1940; A9270-GY

== ENCOUNTER 2023-03-03 16:08 | Emergency (ER) | payer MEDICARE ==
[2023-03-03 16:19] VITALS: TEMP 98
[2023-03-03] MEDS ORDERED: Hydromorphone 1 mg/ml Injection ONE (16:57)
[2023-03-03] MEDS: Hydromorphone 1 mg/ml Injection IV ONE ×2 (16:58→16:59)
--- NOTE | 2023-03-03 16:59 | XRAY ---
Indication: Left-sided pain following fall. Comparison: December 09, 2022 Portable chest demonstrates new left mid to lower lung infiltrate/atelectasis/effusion. Remaining heart and lungs unremarkable again with incidental tiny left lung calcified granuloma, CABG, and left pacemaker. Bony thorax intact again with osteopenia and degenerative changes.
[2023-03-03 18:16] VITALS: RESP 20; O2SAT 98
--- NOTE | 2023-03-03 19:01 | ERPHSYRPT ---
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 He denies any loss of consciousness. He denies any shortness of breath. Although it does hurt to take a deep breath. Occurred: just prior to arrival Reason for Fall: lost balance, tripped Injuries/Pain Location: chest (Left ribs tender) Loss of Consciousness: no loss of consciousness Allergies/Adverse Reactions: No Known Drug Allergies Allergy (Verified 03/03/23 16:18) Home Medications: Amiodarone HCl 200 mg PO DAILY 03/03/23 [History] Apixaban [Eliquis] 5 mg PO BID 03/03/23 [History] Atorvastatin Calcium 10 mg PO DAILY 03/03/23 [History] Empagliflozin [Jardiance] 10 mg PO DAILY 03/03/23 [History] Omeprazole 20 mg PO DAILY 03/03/23 [History] Paroxetine HCl 20 mg [Paxil 20 MG] 20 mg PO DAILY 03/03/23 [History] Spironolactone 25 mg [Aldactone 25 MG] 25 mg PO DAILY 03/03/23 [History] Hx Tetanus, Diphtheria Vaccination/Date Given: Yes Hx Influenza Vaccination/Date Given: Yes Hx Pneumococcal Vaccination/Date Given: No Travel Risk - International Travel Have you traveled outside of the country in past 3 weeks: No - Coronavirus Screening Are you exhibiting any of the following symptoms?: No Close contact with a COVID-19 positive Pt in past 14-21 Days: No - Vaccine Status Have you recieved a Covid-19 vaccination: Yes [employer]: [employer] - Vaccination Dates Date of 2cond Vaccination (if applicable): 2020 - Review of Systems Constitutional: No Fever, No Chills Eyes: No Symptoms Ears, Nose, & Throat: No Symptoms Respiratory: No Cough, No Dyspnea Cardiac: Chest Pain, No Edema, No Syncope Abdominal/Gastrointestinal: No Abdominal Pain, No Nausea, No Vomiting, No Diarrhea Genitourinary Symptoms: No Dysuria Musculoskeletal: No Back Pain, No Neck Pain Skin: No Rash Neurological: No Dizziness, No Focal Weakness, No Sensory Changes Psychological: No Symptoms Endocrine: No Symptoms All Other Systems: Reviewed and Negative - Past Medical History Pertinent Past Medical History: Yes Neurological History: No Pertinent History ENT History: No Pertinent History Cardiac History: Myocardial Infarction ([place]) Respiratory History: No Pertinent History Endocrine Medical History: No Pertinent History Musculoskeletal History: Osteoarthritis GI Medical History: No Pertinent History History: Other Psycho-Social History: No Pertinent History Male Reproductive Disorders: No Pertinent History Other Medical History: CABG 1992; [place] 08/03 - Past Surgical History Past Surgical History: Yes Neuro Surgical History: No Pertinent History Cardiac: CABG Gastrointestinal: Appendectomy Genitourinary: No Pertinent History Musculoskeletal: Other Male Surgical History: Other Other Surgical History: BACK SURGERY 2014 - Social History Smoking Status: Never smoker Exposure to second hand smoke: No Drug Use: none Patient Lives Alone: No - Nursing Vital Signs Nursing Vital Signs: Initial Vital Signs Temperature 98.0 F 03/03/23 16:10 Pulse Rate 65 03/03/23 16:10 Blood Pressure 108/72 03/03/23 16:10 O2 Sat by Pulse Oximetry 90 L 03/03/23 16:10 Pain Scale Pain Intensity 4 - [place] Coma Score Best Eye Response (Sonny): (4) open spontaneously Best Verbal Response ([place]): (5) oriented Best Motor Response (Sonny): (6) obeys commands Sonny Total: 15 - Physical Exam General Appearance: no apparent distress, alert Head Injury: no evidence of injury Eye Exam: PERRL/EOMI ENT Exam: airway nml Neck Exam: normal inspection, No tenderness Respiratory/Chest Exam: normal breath sounds, No chest tenderness, No respiratory distress Cardiovascular Exam: normal heart sounds, regular rate/rhythm Gastrointestinal Exam: soft, No tenderness, No distention, No guarding, No ecchymosis Back Exam: normal inspection, No vertebral tenderness Extremity Exam: normal inspection, normal range of motion, pelvis stable, No deformities Neurologic Exam: alert, oriented x 3, cooperative, sensation nml, No motor deficits Skin Exam: normal color, warm, dry SpO2 Interpretation: normal SpO2: 98 O2 Delivery: Room Air - Course Nursing assessment & vital signs reviewed: Yes - Radiology Exams Chest X-ray Interpretation: Reviewed by me (Chest x-ray was read as Bony thorax intact.) Ordered Tests: Active Orders 24 hr Category Date Time Status CHEST 1 VIEW (PORTABLE) Stat Exams 03/03/23 16:34 Completed Medication Summary Discontinued Medications Generic Name Dose Route Start Last Admin Trade Name Delfin PRN Reason Stop Dose Admin Hydromorphone HCl 1 mg 03/03/23 16:33 03/03/23 16:59 Hydromorphone 1 Mg/1ml Inj IV 03/03/23 16:34 1 mg STAT ONE Administration Hydromorphone HCl Confirm 03/03/23 16:57 Hydromorphone 1 Mg/1ml Inj Administered 03/03/23 16:58 Dose 1 mg .ROUTE .STK-MED ONE - Progress Progress: unchanged, pain not gone completely Medical Desision Making - Independent Historian Additional History obtained from: Spouse - Diagnostic Testing Radiological Interpretation: Reviewed by me - Departure Departure Disposition: Home Clinical Impression: Contusion of rib on left side Condition: Stable Critical Care Time: No Referrals: ANN SCHROEDER [Primary Care Provider] - Follow up/PCP as directed Instructions: Bruised Rib Prescriptions: Oxycodone HCl/Acetaminophen [Percocet 10-325 mg Tablet] 1 each PO Q6H 3 Days #12 tablet MDD 4
[2023-03-03] MEDS ORDERED: PERCOCET TABLET 5/325MG PO STA (19:35)
[2023-03-03 19:38] VITALS: BP 125/70; PULSE 73
[2023-03-03] MEDS ORDERED: PERCOCET TABLET 5/325MG ONE (19:39)
== END 2023-03-03 19:50 | disposition home or self-care (01) ==
LOC: ED 16:08
DX: S20.212A Contusion of left front wall of thorax, initial encounter (principal); W17.89XA Other fall from one level to another, initial encounter; Y92.79 Other farm location as the place of occurrence of the external cause; Z79.01 Long term (current) use of anticoagulants; Z79.84 Long term (current) use of oral hypoglycemic drugs; Z79.891 Long term (current) use of opiate analgesic; Z79.899 Other long term (current) drug therapy
CPT/HCPCS: 71045; 96374; 99283; J1170; A9270-GY